=== PATIENT | male | born 1945 | race African-American/Black ===

== ENCOUNTER → 2016-11-27 | Outpatient (CLI) | payer MEDICARE, BC ==
--- NOTE | 2016-11-27 16:31 | Diagnostic Imaging Report ---
PA and lateral views of the chest. INDICATION: Asthma. FINDINGS: There is minimal atelectasis or scarring seen in the lung bases more prominent on the left side with no significant consolidation seen otherwise. Flattening of the diaphragms is suggestive of pulmonary hyperinflation, this is seen on the lateral view. The heart size is normal. No effusion or pneumothorax. The mediastinum and ar appear unremarkable. IMPRESSION: Minimal bibasilar atelectasis or scarring more prominent on the left side. Dictated by: Dictated on workstation # [id number]
== END ==
LOC: RAD 14:41
PROVIDERS: ATTEND Nurse Practitioner Family
DX: J45.909 Unspecified asthma, uncomplicated (principal); J30.2 Other seasonal allergic rhinitis; R06.00 Dyspnea, unspecified
CPT/HCPCS: 71020

== ENCOUNTER → 2016-12-05 | Outpatient (CLI) | payer MEDICARE, BC ==
[~2016-12-05] MED LIST: RT-ALBUTEROL SULF 2.5 MG/3 ML PRE-MIX VIAL IH ONE
== END ==
LOC: RT 12:43
PROVIDERS: ATTEND Nurse Practitioner Family
DX: J45.909 Unspecified asthma, uncomplicated; R06.00 Dyspnea, unspecified
CPT/HCPCS: 94060; 94640; 94726; 94729

== ENCOUNTER → 2016-12-31 | Outpatient (CLI) | payer MEDICARE, BC ==
--- NOTE | 2016-12-31 14:21 | Diagnostic Imaging Report ---
PROCEDURE: CT chest without contrast. TECHNIQUE: Multiple contiguous axial images were obtained through the chest without the use of intravenous contrast. INDICATION: Asthma. FINDINGS: The lungs demonstrate minimal atelectasis or scarring in the bases and right middle lobe. There is no significant consolidation, mass or suspicious nodule seen. There are no significant emphysema changes or interstitial thickening. No bronchiectasis. The heart size is normal. No pleural or pericardial effusion. No mediastinal mass or lymphadenopathy. No axillary lymphadenopathy. There is diffuse hepatic steatosis. Partially visualized cystic lesion measuring up to 5.4 cm in size is noted in the left kidney with suggestion of other cysts seen. The osseous structures demonstrate bridging syndesmophytes. IMPRESSION: 1. Minimal foci of atelectasis or scarring are seen in the lung bases and in the right middle lobe. 2. Hepatic steatosis. Dictated by: Dictated on workstation # [id number]
== END ==
LOC: RAD 08:14
PROVIDERS: ATTEND Nurse Practitioner Family
DX: J98.4 Other disorders of lung (principal); K76.0 Fatty (change of) liver, not elsewhere classified; J30.2 Other seasonal allergic rhinitis; R06.00 Dyspnea, unspecified
CPT/HCPCS: 71250; 94761